=== PATIENT | male | born 1960 | race Caucasian/White ===

== ENCOUNTER 2017-07-11 13:16 | Inpatient (IN) | payer MEDICARE, MEDICAID ==
[~2017-07-11] VITALS: Ht 177.8 cm; Wt 54.2 kg
[~2017-07-11 13:16] MED LIST: ADV250 IH; BENZ-51 PO; BENZ2TAB58 PO; CITA10TA68 PO; CLON1 PO; GUAI600T30 PO; IPRA4AER IH; LEVO250 PO; NICO1PAT16 TD; PRED5 PO; QUET400T3 PO; RISP2 PO
[2017-07-11] MEDS ORDERED: TRAZ-147 PO (13:33)
[2017-07-11] MEDS ORDERED: PROP10TA73 PO (13:33)
[2017-07-11] MEDS ORDERED: TIOT185 IH (13:33)
[2017-07-11] MEDS ORDERED: ESOM20CA31 PO (13:33)
[2017-07-11 13:52] LABS: BASOPHILS # (AUTO) 0.05 K/uL (0.00-0.20); BASOPHILS % (AUTO) 0.3 % (0.0-2.0); EOSINOPHILS % (AUTO) 2.17 % (1.0-6.0); HEMATOCRIT 44.8 % (41-53); HEMOGLOBIN 14.7 g/dL (13.5-17.5); LYMPHOCYTES # (AUTO) 2.7 K/uL (1.0-4.8); MEAN CORPUSCULAR HEMOGLOBIN 29.2 pg (26.0-34.0); MEAN CORPUSCULAR HGB CONC 32.7 G/dL (31.0-37.0); MEAN CORPUSCULAR VOLUME 89 fL (80-100); MONOCYTES # (AUTO) 0.9 K/uL (0.1-1.0); MONOCYTES % (AUTO) 6.7 % (2.0-9.0); NEUTROPHILS % (AUTO) 71.8 % (40.0-70.0); PLATELET COUNT (AUTO) 433 K/uL (150-450); RED BLOOD CELL COUNT(AUTO) 5.02 MIL/uL (4.50-5.90); RED CELL DISTRIBUTION WIDTH 14.9 % (11.5-14.5); WHITE BLOOD COUNT (AUTO) 13.9 K/uL (4.5-11.0)
[2017-07-11 13:53] LABS: APPEARANCE,URINE CLEAR (CLEAR); GLUCOSE, URINE (UA) NEGATIVE (NEGATIVE); KETONES,URINE NEGATIVE (NEGATIVE); LEUKOCYTE ESTERASE ,URINE NEGATIVE (NEGATIVE); OCCULT BLOOD,URINE NEGATIVE (NEGATIVE); PH,URINE 6.5 (5.0-8.0); PROTEIN,URINE NEGATIVE (NEGATIVE)
[2017-07-11 13:54] LABS: ADD UA MICROSCOPIC NO
[2017-07-11 14:32] LABS: ALANINE AMINOTRANSFERASE 41 U/L (12-78); ALBUMIN 2.7 g/dL (3.4-5.0); ANION GAP 5 mmol/L (8-16); ASPARTATE AMINOTRANSFERASE 25 U/L (15-37); BILIRUBIN,TOTAL 0.3 mg/dL (0.1-1.0); CALCIUM, TOTAL 8.7 mg/dL (8.8-10.5); CARBON DIOXIDE 28 mmol/L (22-29); CHLORIDE 95 mmol/L (98-107); CREATININE 0.63 mg/dL (0.60-1.30); GLOMERULAR FILTR. RATE CALC > 60 mL/min (>60); POTASSIUM 4.6 mmol/L (3.5-5.1); SODIUM SERUM 128 mmol/L (136-145); THYROID STIMULATING HORMONE 1.76 uIU/mL (0.36-3.74); TOTAL PROTEIN, SERUM 6.8 g/dL (6.4-8.2); UREA NITROGEN, BLOOD 16 mg/dL (7-18)
[2017-07-11] MEDS ORDERED: SODIUM CHLORIDE 0.9% 1,000 ML IV ONE (15:30)
[2017-07-11] MEDS ORDERED: DiphenhydrAMINE HCL 50 MG CAPSULE PO ONE (16:15)
[2017-07-11] MEDS ORDERED: HALOPERIDOL 5 MG TABLET PO ONE (16:15)
[2017-07-11] MEDS ORDERED: LORazepam 2 MG TABLET PO ONE (16:15)
[2017-07-11] MEDS ORDERED: SODIUM CHLORIDE 1 GM TABLET PO ONE (20:45)
[2017-07-11] MEDS ORDERED: HALOPERIDOL 5 MG TABLET PO PRN (21:00)
[2017-07-11] MEDS ORDERED: LORazepam 2 MG TABLET PO PRN (21:00)
[2017-07-11] MEDS ORDERED: ZOLPIDEM TARTRATE 10 MG TABLET PO PRN (21:00)
[2017-07-11] MEDS ORDERED: ACETAMINOPHEN 325 MG TABLET PO PRN (21:30)
[2017-07-11] MEDS ORDERED: IBUPROFEN 400 MG TABLET PO PRN (21:30)
[2017-07-11 22:00] VITALS: BP 144/97
[2017-07-11] MEDS ORDERED: ALBUTEROL SULFATE HFA 90 MCG/PUFF 8 GM INHALER IH ONE (22:25)
[2017-07-11] MEDS: ALBUTEROL SULFATE HFA 90 MCG/PUFF 8 GM INHALER IH PRN (22:28)
[2017-07-11] MEDS ORDERED: PNEUMOCOCCAL VACCINE POLYVALENT 0.5 ML VIAL [PPSV23] IM ONE (23:00)
[2017-07-11] MEDS ORDERED: INFLUENZA VIRUS VACCINE QVS 2017-18 (3YR+)/PF 60 MCG/0.5 ML SYRINGE IM ONE (23:00)
[2017-07-12] VITALS: BP 125/76
[2017-07-12 04:00] VITALS: BP 113/70
[2017-07-12 08:32] VITALS: BP 129/72
[2017-07-12 08:55] LABS: CHOL/HDL RATIO 3.5 (4.2-7.3); THYROID STIMULATING HORMONE 2.07 uIU/mL (0.36-3.74)
[2017-07-12] MEDS: FLUTICASONE/VILANTEROL 200-25 MCG/INH INHALER [14] IH SCH ×2 (09:00→12:00)
[2017-07-12] MEDS: TIOTROPIUM BROMIDE 18 MCG/INH HANDIHALER [5] IH SCH (09:00)
[2017-07-12] MEDS: SODIUM CHLORIDE 1 GM TABLET PO SCH ×2 (09:38→16:45)
[2017-07-12] MEDS: PROPRANOLOL HCL 10 MG TABLET PO SCH ×2 (09:38→16:45)
[2017-07-12] MEDS: OMEPRAZOLE 20 MG CAPSULE PO SCH (09:38)
[2017-07-12] MEDS: QUEtiapine FUMARATE 100 MG TABLET PO SCH ×2 (12:59→16:45)
[2017-07-12 14:36] VITALS: BP 111/69
[2017-07-12 16:00] VITALS: BP 112/73
[2017-07-12] MEDS: ALBUTEROL SULFATE HFA 90 MCG/PUFF 8 GM INHALER IH PRN (16:46)
[2017-07-12] MEDS: BENZTROPINE MESYLATE 2 MG TABLET PO SCH (21:32)
[2017-07-13 00:02] VITALS: BP 111/75
[2017-07-13 04:05] VITALS: BP 106/70
[2017-07-13 08:19] VITALS: BP 100/70
[2017-07-13] MEDS: QUEtiapine FUMARATE 100 MG TABLET PO SCH ×3 (08:31→16:50)
[2017-07-13] MEDS: SODIUM CHLORIDE 1 GM TABLET PO SCH ×2 (08:31→16:50)
[2017-07-13] MEDS: OMEPRAZOLE 20 MG CAPSULE PO SCH (08:31)
[2017-07-13] MEDS: PROPRANOLOL HCL 10 MG TABLET PO SCH ×2 (08:31→16:50)
[2017-07-13] MEDS: TIOTROPIUM BROMIDE 18 MCG/INH HANDIHALER [5] IH SCH (09:00)
[2017-07-13 13:00] VITALS: BP 105/71
[2017-07-13 16:03] VITALS: BP 113/73
[2017-07-13] MEDS: LORazepam 2 MG TABLET PO PRN (16:51)
[2017-07-13] MEDS: ZOLPIDEM TARTRATE 10 MG TABLET PO PRN (21:02)
[2017-07-13] MEDS: BENZTROPINE MESYLATE 2 MG TABLET PO SCH (21:02)
[2017-07-14 06:05] VITALS: BP 113/75
[2017-07-14 08:01] VITALS: BP 125/82
[2017-07-14] MEDS: QUEtiapine FUMARATE 100 MG TABLET PO SCH ×3 (08:12→18:01)
[2017-07-14] MEDS: SODIUM CHLORIDE 1 GM TABLET PO SCH ×3 (08:12→20:50)
[2017-07-14] MEDS: PROPRANOLOL HCL 10 MG TABLET PO SCH ×2 (08:12→18:01)
[2017-07-14] MEDS: FLUTICASONE/VILANTEROL 200-25 MCG/INH INHALER [14] IH SCH (08:13)
[2017-07-14] MEDS: TIOTROPIUM BROMIDE 18 MCG/INH HANDIHALER [5] IH SCH (08:13)
[2017-07-14] MEDS: OMEPRAZOLE 20 MG CAPSULE PO SCH (08:30)
[2017-07-14 09:09] LABS: ALANINE AMINOTRANSFERASE 36 U/L (12-78); ALBUMIN 2.6 g/dL (3.4-5.0); ANION GAP 5 mmol/L (8-16); ASPARTATE AMINOTRANSFERASE 23 U/L (15-37); BILIRUBIN,TOTAL 0.3 mg/dL (0.1-1.0); CALCIUM, TOTAL 8.7 mg/dL (8.8-10.5); CARBON DIOXIDE 29 mmol/L (22-29); CHLORIDE 101 mmol/L (98-107); CREATININE 0.57 mg/dL (0.60-1.30); GLOMERULAR FILTR. RATE CALC > 60 mL/min (>60); POTASSIUM 4.9 mmol/L (3.5-5.1); SODIUM SERUM 135 mmol/L (136-145); TOTAL PROTEIN, SERUM 6.1 g/dL (6.4-8.2); UREA NITROGEN, BLOOD 14 mg/dL (7-18)
[2017-07-14 13:49] VITALS: BP 92/60
[2017-07-14 16:00] VITALS: BP 113/85
[2017-07-14] MEDS: HALOPERIDOL 5 MG TABLET PO PRN (20:49)
[2017-07-14] MEDS: LORazepam 2 MG TABLET PO PRN (20:49)
[2017-07-14] MEDS: BENZTROPINE MESYLATE 2 MG TABLET PO SCH (20:55)
[2017-07-15 06:39] VITALS: BP 123/81
[2017-07-15 08:11] VITALS: BP 109/71
[2017-07-15] MEDS: OMEPRAZOLE 20 MG CAPSULE PO SCH (08:19)
[2017-07-15] MEDS: QUEtiapine FUMARATE 100 MG TABLET PO SCH ×3 (08:19→17:13)
[2017-07-15] MEDS: PROPRANOLOL HCL 10 MG TABLET PO SCH ×2 (08:19→17:13)
[2017-07-15] MEDS: SODIUM CHLORIDE 1 GM TABLET PO SCH (08:19)
[2017-07-15] MEDS: FLUTICASONE/VILANTEROL 200-25 MCG/INH INHALER [14] IH SCH (08:25)
[2017-07-15] MEDS: TIOTROPIUM BROMIDE 18 MCG/INH HANDIHALER [5] IH SCH (08:25)
[2017-07-15 13:00] VITALS: BP 95/70
[2017-07-15 16:00] VITALS: BP 127/65
[2017-07-15] MEDS: HALOPERIDOL 5 MG TABLET PO PRN (21:21)
[2017-07-15] MEDS: BENZTROPINE MESYLATE 2 MG TABLET PO SCH (21:21)
[2017-07-16 06:38] VITALS: BP 109/60
[2017-07-16] MEDS: FLUTICASONE/VILANTEROL 200-25 MCG/INH INHALER [14] IH SCH (07:58)
[2017-07-16] MEDS: TIOTROPIUM BROMIDE 18 MCG/INH HANDIHALER [5] IH SCH (07:58)
[2017-07-16] MEDS: PROPRANOLOL HCL 10 MG TABLET PO SCH ×2 (07:59→16:14)
[2017-07-16] MEDS: OMEPRAZOLE 20 MG CAPSULE PO SCH (07:59)
[2017-07-16] MEDS: QUEtiapine FUMARATE 100 MG TABLET PO SCH ×3 (07:59→16:14)
[2017-07-16 08:01] VITALS: BP 135/86
[2017-07-16 08:12] LABS: BASOPHILS % (AUTO) 0.6 % (0.0-2.0); HEMATOCRIT 41.7 % (41-53); HEMOGLOBIN 14.3 g/dL (13.5-17.5); LYMPHOCYTES # (AUTO) 2.1 K/uL (1.0-4.8); LYMPHOCYTES % (AUTO) 22.3 % (22.0-44.0); MEAN CORPUSCULAR HEMOGLOBIN 30.3 pg (26.0-34.0); MEAN CORPUSCULAR HGB CONC 34.2 G/dL (31.0-37.0); MEAN CORPUSCULAR VOLUME 89 fL (80-100); MONOCYTES # (AUTO) 0.8 K/uL (0.1-1.0); MONOCYTES % (AUTO) 8.6 % (2.0-9.0); NEUTROPHILS # (AUTO) 6.1 K/uL (1.8-7.7); NEUTROPHILS % (AUTO) 65.5 % (40.0-70.0); PLATELET COUNT (AUTO) 403 K/uL (150-450); RED CELL DISTRIBUTION WIDTH 14.6 % (11.5-14.5); WHITE BLOOD COUNT (AUTO) 9.4 K/uL (4.5-11.0)
[2017-07-16 08:23] LABS: ANION GAP 4 mmol/L (8-16); CALCIUM, TOTAL 8.7 mg/dL (8.8-10.5); CARBON DIOXIDE 31 mmol/L (22-29); CHLORIDE 100 mmol/L (98-107); CREATININE 0.63 mg/dL (0.60-1.30); GLOMERULAR FILTR. RATE CALC > 60 mL/min (>60); POTASSIUM 4.5 mmol/L (3.5-5.1); SODIUM SERUM 135 mmol/L (136-145); UREA NITROGEN, BLOOD 18 mg/dL (7-18)
[2017-07-16] MEDS ORDERED: QUET100T PO (09:54)
[2017-07-16] MEDS ORDERED: OMEP20CA10 PO (09:59)
[2017-07-16 16:00] VITALS: BP 112/70
[2017-07-16] MEDS: BENZTROPINE MESYLATE 2 MG TABLET PO SCH (20:54)
[2017-07-16] MEDS: ZOLPIDEM TARTRATE 10 MG TABLET PO PRN (21:58)
[2017-07-17] MEDS: OMEPRAZOLE 20 MG CAPSULE PO SCH (08:51)
[2017-07-17] MEDS: QUEtiapine FUMARATE 100 MG TABLET PO SCH ×3 (08:51→16:21)
[2017-07-17] MEDS: PROPRANOLOL HCL 10 MG TABLET PO SCH ×2 (08:51→16:19)
[2017-07-17] MEDS: FLUTICASONE/VILANTEROL 200-25 MCG/INH INHALER [14] IH SCH (08:59)
[2017-07-17] MEDS: TIOTROPIUM BROMIDE 18 MCG/INH HANDIHALER [5] IH SCH (08:59)
[2017-07-17 09:10] VITALS: BP 137/81
[2017-07-17 16:13] VITALS: BP 111/81
[2017-07-17] MEDS: ZOLPIDEM TARTRATE 10 MG TABLET PO PRN (20:34)
[2017-07-17] MEDS: BENZTROPINE MESYLATE 2 MG TABLET PO SCH (20:34)
[2017-07-18 00:01] VITALS: BP 133/63
[2017-07-18 08:00] VITALS: BP 111/63
[2017-07-18 08:02] VITALS: BP 130/81
[2017-07-18] MEDS: OMEPRAZOLE 20 MG CAPSULE PO SCH (08:45)
[2017-07-18] MEDS: PROPRANOLOL HCL 10 MG TABLET PO SCH ×2 (08:45→16:34)
[2017-07-18] MEDS: QUEtiapine FUMARATE 100 MG TABLET PO SCH ×3 (08:45→16:34)
[2017-07-18] MEDS: FLUTICASONE/VILANTEROL 200-25 MCG/INH INHALER [14] IH SCH (08:46)
[2017-07-18] MEDS: TIOTROPIUM BROMIDE 18 MCG/INH HANDIHALER [5] IH SCH (08:46)
== END 2017-07-18 16:45 | DRG 885 ==
LOC: EMS 13:18 → B3A 20:59
PROVIDERS: ADMIT Psychiatry & Neurology Psychiatry; ATTEND Psychiatry & Neurology Psychiatry
DX: F20.0 Paranoid schizophrenia (principal); E87.1 Hypo-osmolality and hyponatremia; Z68.1 Body mass index [BMI] 19.9 or less, adult; D72.829 Elevated white blood cell count, unspecified; F17.210 Nicotine dependence, cigarettes, uncomplicated; J44.9 Chronic obstructive pulmonary disease, unspecified; Z28.21 Immunization not carried out because of patient refusal
CPT/HCPCS: 83036; 84443; 87081; 90471; 99285; G0480; J3535; J7030

== ENCOUNTER 2018-11-18 18:07 | Emergency (ER) | payer MEDICARE, OTHER ==
[~2018-11-18] VITALS: Ht 177.8 cm; Wt 60.9 kg
[~2018-11-18 18:07] MED LIST changes: -ADV250 IH; -BENZ-51 PO; -CITA10TA68 PO; -CLON1 PO; -GUAI600T30 PO; -IPRA4AER IH; -LEVO250 PO; -NICO1PAT16 TD; +OMEP20CA10 PO; -PRED5 PO; +PROP10TA73 PO; +QUET100T PO; -QUET400T3 PO; -RISP2 PO; +TIOT185 IH
[2018-11-18 18:33] LABS: BASOPHILS % (AUTO) 0.5 % (0.0-2.0); EOSINOPHILS % (AUTO) 1.6 % (1.0-6.0); HEMATOCRIT 44.8 % (41-53); LYMPHOCYTES # (AUTO) 1.6 K/uL (1.0-4.8); LYMPHOCYTES % (AUTO) 20.3 % (22.0-44.0); MEAN CORPUSCULAR HEMOGLOBIN 29.5 pg (26.0-34.0); MEAN CORPUSCULAR HGB CONC 33.6 G/dL (31.0-37.0); MEAN CORPUSCULAR VOLUME 88 fL (80-100); MONOCYTES % (AUTO) 12.6 % (2.0-9.0); NEUTROPHILS # (AUTO) 5.2 K/uL (1.8-7.7); PLATELET COUNT (AUTO) 333 K/uL (150-450); RED BLOOD CELL COUNT(AUTO) 5.11 MIL/uL (4.50-5.90); RED CELL DISTRIBUTION WIDTH 16.3 % (11.5-14.5)
[2018-11-18 18:46] LABS: ANION GAP 8 mmol/L (8-16); CALCIUM, TOTAL 9.1 mg/dL (8.8-10.5); CARBON DIOXIDE 28 mmol/L (22-29); CHLORIDE 95 mmol/L (98-107); GLOMERULAR FILTR. RATE CALC > 60 mL/min (>60); GLUCOSE,RANDOM 100 mg/dL (70-110); POTASSIUM 4.3 mmol/L (3.5-5.1); SODIUM SERUM 131 mmol/L (136-145); UREA NITROGEN, BLOOD 8 mg/dL (7-18)
[2018-11-18 18:59] LABS: AMPHET/METH SCREEN,URINE NEGATIVE (NEGATIVE); BARBITURATE SCREEN, URINE NEGATIVE (NEGATIVE); BENZODIAZEPINES SCREEN,URINE NEGATIVE (NEGATIVE); CANNABINOID SCREEN,URINE NEGATIVE (NEGATIVE); COCAINE SCREEN,URINE NEGATIVE (NEGATIVE); METHADONE SCREEN, URINE NEGATIVE (NEGATIVE); OPIATE SCREEN,URINE NEGATIVE (NEGATIVE)
[2018-11-18 19:00] LABS: PHENCYCLIDINE SCREEN,URINE NEGATIVE (NEGATIVE)
[2018-11-18 19:00] LABS: ALANINE AMINOTRANSFERASE 25 U/L (12-78); ALBUMIN 3.1 g/dL (3.4-5.0); ALKALINE PHOSPHATASE 190 U/L (46-116); ASPARTATE AMINOTRANSFERASE 26 U/L (15-37); BILIRUBIN,TOTAL 0.5 mg/dL (0.1-1.0); TOTAL PROTEIN, SERUM 7.6 g/dL (6.4-8.2)
[2018-11-18] MEDS ORDERED: QUEtiapine FUMARATE 100 MG TABLET PO ONE (20:00)
[2018-11-18 20:39] VITALS: BP 110/60
== END 2018-11-18 20:52 | disposition home or self-care (01) ==
LOC: EMS 18:08
DX: F20.0 Paranoid schizophrenia (principal); J44.9 Chronic obstructive pulmonary disease, unspecified; F17.210 Nicotine dependence, cigarettes, uncomplicated; Z79.899 Other long term (current) drug therapy
CPT/HCPCS: 36415; 80053; 80307; 85025; 99284; 99406; G0480